=== PATIENT | male | born 1965 | race Caucasian/White ===

== ENCOUNTER 2018-09-27 22:31 | Emergency (ER) | payer BC, OTHER ==
[~2018-09-27] VITALS: Ht 160 cm; Wt 61.7 kg
[~2018-09-27 22:31] MED LIST: CLON1TAB PO; DEXL60CA3 PO; LORA-259 PO; SODI650T PO
[2018-09-27] MEDS ORDERED: IV NORMAL SALINE 1000 ML BAG IV ONE (23:00)
[2018-09-27] MEDS ORDERED: MORPHINE SULFATE 4 MG/1 ML DISP.SYRIN IV ONE ×2 (23:00→23:45)
[2018-09-27] MEDS ORDERED: ONDANSETRON 4 MG/2 ML VIAL IV ONE ×2 (23:00→23:45)
[2018-09-27] MEDS ORDERED: MORPHINE SULFATE 4 MG/1 ML DISP.SYRIN ONE (23:16)
[2018-09-27] MEDS ORDERED: ONDANSETRON 4 MG/2 ML VIAL ONE (23:17)
[2018-09-27 23:22] LABS: BASOPHILS % (AUTO) 0.2 % (0.0-2.0); EOSINOPHILS # (AUTO) 0.1 K/uL (0.0-0.7); EOSINOPHILS % (AUTO) 1.1 % (0.0-7.0); HEMOGLOBIN 15.5 g/dL (12.5-16.3); LYMPHOCYTES # (AUTO) 0.7 K/uL (20.0-40.0); LYMPHOCYTES % (AUTO) 6.6 % (20.5-51.5); MEAN CORPUSCULAR HEMOGLOBIN 31.9 uug (23.8-33.4); MEAN CORPUSCULAR HGB CONC 34 g/dL (32.5-36.3); MEAN CORPUSCULAR VOLUME 94.5 fL (73.0-96.2); MONOCYTES # (AUTO) 0.8 K/uL (2.0-10.0); MONOCYTES % (AUTO) 7.5 % (0.0-11.0); NEUTROPHILS # (AUTO) 8.5 K/uL (1.8-8.9); NEUTROPHILS % (AUTO) 84.6 % (38.5-71.5); PLATELET COUNT (AUTO) 200 K/uL (152-348); RED BLOOD CELL COUNT(AUTO) 4.87 MIL/uL (4.06-5.63); WHITE BLOOD COUNT (AUTO) 10.1 K/uL (3.6-10.2)
[2018-09-27 23:30] LABS: CREATININE 1.7 mg/dL (0.6-1.3); POTASSIUM 3.3 mmol/L (3.5-5.1)
[2018-09-27 23:36] LABS: BILIRUBIN,DIRECT 0.2 mg/dL (0.0-0.2); BILIRUBIN,TOTAL 0.8 mg/dL (0.2-1.0); TOTAL PROTEIN, SERUM 8.3 g/dL (6.4-8.2)
--- NOTE | 2018-09-27 23:38 | NUR ---
blood bank technologist. at bedside for CXR
[2018-09-28] MEDS ORDERED: ONDANSETRON 4 MG/2 ML VIAL ONE (00:02)
[2018-09-28] MEDS ORDERED: MORPHINE SULFATE 4 MG/1 ML DISP.SYRIN ONE (00:02)
[2018-09-28 00:04] LABS: *BILIRUBIN,URIN NEGATIVE (NEGATIVE); *BLOOD, URINE NEGATIVE (NEGATIVE); *CLARITY,URINE CLEAR (CLEAR); *COLOR,URINE YELLOW (YELLOW); *KETONES,URINE NEGATIVE (NEGATIVE); *UROBILINOGEN,URINE 0.2 E.U./dl (NORMAL); LEUKOCYTE ESTERASE ,URINE NEGATIVE (NEGATIVE); NITRITE, URINE NEGATIVE (NEGATIVE); UGLUCOSE NEGATIVE (NEGATIVE)
--- NOTE | 2018-09-28 00:05 | NUR ---
Luís alicea in [facility] - 09/28/18 at 0005 by DASIAPP Pt. back from CT
[2018-09-28 00:27] LABS: RBC,URINE 0-3 /HPF (0-3)
[2018-09-28 00:28] LABS: BACTERIA,URINE NONE SEEN /HPF (NONE SEEN); SQUAMOUS EPITHELIAL CELL,UR FEW /HPF (NONE SEEN); URINE AMORPHOUS URATE FEW /HPF
[2018-09-28 00:29] LABS: MUCUS,URINE MODERATE /LPF (0-FEW)
--- NOTE | 2018-09-28 00:45 | NUR ---
2nd litter NS begun, bed in low position, NAD
--- NOTE | 2018-09-28 01:45 | NUR ---
Patient discharged to home in stable conditon. Written and verbal after care instructions given. Patient verbalizes understanding of instructions. Pt. d/c w/ prescription per MD order, d/c papers signed, all belongings w/ pt., ID band removed, ambulated off unit w/ steady gait, NAD
== END 2018-09-28 01:47 | disposition home or self-care (01) ==
LOC: ER 22:31
DX: R10.84 Generalized abdominal pain (principal); R11.2 Nausea with vomiting, unspecified; J45.909 Unspecified asthma, uncomplicated; E03.9 Hypothyroidism, unspecified; Z90.49 Acquired absence of other specified parts of digestive tract; Z88.8 Allergy status to other drugs, medicaments and biological substances; Z79.899 Other long term (current) drug therapy
CPT/HCPCS: 36415; 71045; 80048; 80076; 81000; 81001; 83690; 84484; 85025; 85730; 87086; 93005; 96361; 96374; 96375; 96376; 99284; J2270 ×2; J2405 ×2; 70030-TC; A4663; J7030

== ENCOUNTER 2018-10-31 05:15 | Inpatient (IN) | payer BC ==
[~2018-10-31] VITALS: Ht 160 cm; Wt 61.2 kg
--- NOTE | 2018-10-31 05:30 | NUR ---
patient arrive at the ER with CC of pain on left side of mid to lower back that radiates to left abdominal are that started at 10pm last night. Pain described as sharp pain. Patient with ileostomy. Also reported Nausea and reported taking Zofran at home. Denies any diarrhea. Patient AAOX4. In no acute distress. No cardiovascular concern. No concern.
--- NOTE | 2018-10-31 05:32 | NUR ---
KEV Tillman at bedside for MSE.
--- NOTE | 2018-10-31 05:40 | NUR ---
Patient witih PICC line double lumen on right upper arm. Receieved order from ER clifton Cardoso to acces existing PICC line.
[2018-10-31] MEDS ORDERED: HYDROMORPHONE 1 MG/1 ML DISP.SYRIN IV ONE ×5 (05:45→15:00)
[2018-10-31] MEDS ORDERED: METOCLOPRAMIDE HCL 10 MG/2 ML VIAL IV ONE (05:45)
[2018-10-31] MEDS ORDERED: IV NORMAL SALINE 500 ML IV ONE (05:45)
[2018-10-31 05:46] LABS: BASOPHILS % (AUTO) 0.3 % (0.0-2.0); EOSINOPHILS # (AUTO) 0.4 K/uL (0.0-0.7); EOSINOPHILS % (AUTO) 3.4 % (0.0-7.0); HEMATOCRIT 40.5 % (36.7-47.1); HEMOGLOBIN 13.5 g/dL (12.5-16.3); LYMPHOCYTES # (AUTO) 0.9 K/uL (20.0-40.0); LYMPHOCYTES % (AUTO) 7.7 % (20.5-51.5); MEAN CORPUSCULAR HEMOGLOBIN 30.9 uug (23.8-33.4); MEAN CORPUSCULAR HGB CONC 33 g/dL (32.5-36.3); MEAN CORPUSCULAR VOLUME 92.5 fL (73.0-96.2); MONOCYTES # (AUTO) 0.7 K/uL (2.0-10.0); MONOCYTES % (AUTO) 6.1 % (0.0-11.0); NEUTROPHILS # (AUTO) 9.4 K/uL (1.8-8.9); NEUTROPHILS % (AUTO) 82.5 % (38.5-71.5); PLATELET COUNT (AUTO) 224 K/uL (152-348); RED BLOOD CELL COUNT(AUTO) 4.38 MIL/uL (4.06-5.63); WHITE BLOOD COUNT (AUTO) 11.3 K/uL (3.6-10.2)
[2018-10-31 05:57] LABS: POTASSIUM 4.3 mmol/L (3.5-5.1)
[2018-10-31] MEDS ORDERED: METOCLOPRAMIDE HCL 10 MG/2 ML VIAL ONE (05:57)
[2018-10-31] MEDS ORDERED: HYDROMORPHONE 1 MG/1 ML DISP.SYRIN ONE ×3 (05:57→11:18)
[2018-10-31 06:08] LABS: BILIRUBIN,DIRECT 0.1 mg/dL (0.0-0.2); BILIRUBIN,TOTAL 0.3 mg/dL (0.2-1.0); TOTAL PROTEIN, SERUM 6.8 g/dL (6.4-8.2)
--- NOTE | 2018-10-31 06:25 | NUR ---
Back to ER from CTA.
[2018-10-31 06:27] LABS: *BILIRUBIN,URIN NEGATIVE (NEGATIVE); *CLARITY,URINE CLEAR (CLEAR); *COLOR,URINE YELLOW (YELLOW); *KETONES,URINE NEGATIVE (NEGATIVE); *UROBILINOGEN,URINE 0.2 E.U./dl (NORMAL); LEUKOCYTE ESTERASE ,URINE NEGATIVE (NEGATIVE); NITRITE, URINE NEGATIVE (NEGATIVE); PH,URINE 5.5 (5.0-8.0); UGLUCOSE NEGATIVE (NEGATIVE)
[2018-10-31 06:36] LABS: *BLOOD, URINE TRACE (NEGATIVE)
[2018-10-31 06:38] LABS: BACTERIA,URINE NONE SEEN /HPF (NONE SEEN); SQUAMOUS EPITHELIAL CELL,UR NONE SEEN /HPF (NONE SEEN); WBC,URINE 0-3 /HPF (0-3)
--- NOTE | 2018-10-31 07:11 | NUR ---
Shift report given to Taylor Beckford
--- NOTE | 2018-10-31 07:28 | NUR ---
RECEIVED SHIFT REPORT FROM MARLIN Kong RN. PT RESTING IN BED.
--- NOTE | 2018-10-31 08:56 | NUR ---
KEV DICKERSON SPOKE LEFT A MESSAGE FOR DR. DUMAS, ALUMINUM MOLDER, AT [facility] PER PT'S REQUEST. AWAITING CALLBACK.
[2018-10-31] MEDS ORDERED: HYDROMORPHONE 2 MG/1 ML DISP.SYRIN ONE (09:02)
--- NOTE | 2018-10-31 09:05 | NUR ---
KEV DICKERSON SPEAKING W/ DR. DUMAS ON THE PHONE.
--- NOTE | 2018-10-31 10:57 | NUR ---
CALLED AND LEFT A MESSAGE FOR DR. THOMPSON, UROLOGIST. AWAITING CALLBACK.
--- NOTE | 2018-10-31 11:07 | NUR ---
KEV DICKERSON SPEAKING W/ DR. THOMPSON, UROLOGIST, ON THE PHONE.
[2018-10-31] MEDS ORDERED: ONDANSETRON 4 MG/2 ML VIAL IV ONE (11:15)
[2018-10-31] MEDS ORDERED: ONDANSETRON 4 MG/2 ML VIAL ONE (11:18)
--- NOTE | 2018-10-31 12:09 | NUR ---
ADMITTING REPORT GIVEN TO JAVIER BAILEY.
--- NOTE | 2018-10-31 12:14 | NUR ---
Pt. admitted to [facility], under care of Dr. ASH Belongs List completed
[2018-10-31] MEDS ORDERED: HYDROMORPHONE 1 MG/1 ML DISP.SYRIN IV PRN (13:45)
[2018-10-31] MEDS ORDERED: IV D5 1/2 NS 1000 ML 1,000 ML IV PRN (13:46)
[2018-10-31] MEDS ORDERED: ACETAMINOPHEN 325 MG TABLET PO PRN (14:00)
[2018-10-31] MEDS ORDERED: MAGNESIUM HYDROXIDE 30 ML LIQUID UDC PO PRN (14:00)
[2018-10-31] MEDS ORDERED: Z GUARD REMEDY PASTE 57 GM TUBE TOP PRN (14:00)
[2018-10-31] MEDS ORDERED: ONDANSETRON 4 MG/2 ML VIAL IV PRN (14:00)
[2018-10-31] MEDS ORDERED: ZOLPIDEM 5 MG TABLET PO PRN (14:00)
[2018-10-31] MEDS ORDERED: HYDROCODONE/APAP 5-325MG TABLET PO PRN (14:00)
[2018-10-31] MEDS: IV NS 1000 ML 1,000 ML IV PRN (15:30)
[2018-10-31] MEDS: HYDROMORPHONE 2 MG/1 ML DISP.SYRIN IV PRN (17:54)
--- NOTE | 2018-10-31 19:40 | NUR ---
Received patient awake in bed, alert and oriented x 4, ambulatory. Complaining of pain at the moment, noted patient was just given Dilaudid IV will contact MD for possible new pain medication order. With PICC line at right upper arm, double lumen with intact dressing, to ongoing IVF, infusing well. Bed in low position, locked, side rails up for safety, call light within reach. Noise and light subdued.
[2018-10-31 20:00] VITALS: BP 123/69
--- NOTE | 2018-10-31 20:00 | NUR ---
Per Dr. Wang, patient can be given Toradol 15mg IV q6h for pain.
[2018-10-31] MEDS ORDERED: KETOROLAC TROMETHAMINE 15 MG INJ IVP PRN (20:30)
--- NOTE | 2018-10-31 20:30 | NUR ---
Patient seen and examined by Dr. Haney, urologist, who ordered to give patient Toradol 30mg x 1 and ordered to discontinue Toradol 15mg IV q6h to which Dr. Wang agreed. Per Dr. Haney, patient declined to have the JJ stent placement supposedly for tomorrow. Dr. Haney and Dr. Wang are both aware that the patient requested to be transferred to [facility] and that we are awaiting for bed availability.
[2018-10-31] MEDS ORDERED: KETOROLAC TROMETHAMINE 15 MG INJ IVP SCH (20:45)
[2018-10-31] MEDS ORDERED: CLONAZEPAM 1 MG TABLET PO PRN (21:30)
[2018-11-01] MEDS: IV NS 1000 ML 1,000 ML IV PRN (01:20)
[2018-11-01] MEDS: HYDROMORPHONE 2 MG/1 ML DISP.SYRIN IV PRN ×2 (03:00→12:29)
[2018-11-01 03:01] VITALS: BP 105/65
[2018-11-01] MEDS ORDERED: KETOROLAC TROMETHAMINE 15 MG INJ IVP ONE (04:00)
--- NOTE | 2018-11-01 04:00 | NUR ---
Patient still in pain even after dilaudid IV dose. Contacted concrete grinder operator provider, Cesar Pak DNP who ordered to give Toradol 15mg IV x 1 - given to patient. Will continue to monitor.
--- NOTE | 2018-11-01 05:30 | NUR ---
Patient slept intermittently throughout the night. No distress noted. Attended all needs. Ensured safety and comfort. Still awaiting for bed at [facility] for possible transfer.
[2018-11-01 06:33] LABS: CREATININE 2.7 mg/dL (0.6-1.3); PHOSPHOROUS 2.8 mg/dL (2.5-4.9); POTASSIUM 3.7 mmol/L (3.5-5.1)
[2018-11-01 06:37] LABS: BASOPHILS % (AUTO) 0.3 % (0.0-2.0); EOSINOPHILS # (AUTO) 0.2 K/uL (0.0-0.7); EOSINOPHILS % (AUTO) 2.2 % (0.0-7.0); HEMATOCRIT 34.9 % (36.7-47.1); HEMOGLOBIN 11.8 g/dL (12.5-16.3); LYMPHOCYTES % (AUTO) 10.3 % (20.5-51.5); MEAN CORPUSCULAR HEMOGLOBIN 31.9 uug (23.8-33.4); MEAN CORPUSCULAR HGB CONC 34 g/dL (32.5-36.3); MEAN CORPUSCULAR VOLUME 94.5 fL (73.0-96.2); MONOCYTES # (AUTO) 0.7 K/uL (2.0-10.0); MONOCYTES % (AUTO) 6.9 % (0.0-11.0); NEUTROPHILS # (AUTO) 7.9 K/uL (1.8-8.9); NEUTROPHILS % (AUTO) 80.3 % (38.5-71.5); PLATELET COUNT (AUTO) 183 K/uL (152-348); WHITE BLOOD COUNT (AUTO) 9.8 K/uL (3.6-10.2)
[2018-11-01 06:40] LABS: MAGNESIUM 1.1 mg/dL (1.8-2.4)
--- NOTE | 2018-11-01 06:45 | NUR ---
Critical lab value: Magnesium is 1.1, reported to accordion tuner provider, Cesar Pak DNP. Still awaiting for possible orders. Will endorse accordingly.
[2018-11-01] MEDS ORDERED: MAGNESIUM SULFATE/D5W 100 ML IV SCH (07:00)
[2018-11-01] MEDS ORDERED: PANTOPRAZOLE SODIUM 40 MG TABLET.DR PO SCH (07:33)
[2018-11-01] MEDS ORDERED: CLONAZEPAM 1 MG TABLET PO PRN (07:45)
--- NOTE | 2018-11-01 07:45 | NUR ---
Received patient awake in bed, alert and oriented x 4, ambulatory. No complain of pain at the moment, With PICC line at right upper arm, double lumen with intact dressing, to ongoing IVF, infusing well. Bed in low position, locked, side rails up for safety, call light within reach.
[2018-11-01] MEDS ORDERED: SODIUM BICARBONATE 650 MG TABLET PO SCH (09:00)
[2018-11-01] MEDS ORDERED: Medication Not On Formulary EA (Dexlansoprazole (Dexilant) 1 CAP) PO SCH (09:00)
[2018-11-01] MEDS ORDERED: LORAZEPAM 1 MG TABLET PO SCH (09:00)
[2018-11-01] MEDS ORDERED: IV 1/2NS 1000 ML 1,000 ML IV PRN (10:30)
--- NOTE | 2018-11-01 13:47 | NUR ---
discharge orders received. Pt discharged home self care. D/C instructions given to Pt. Pt to follow up to [facility]. Pt alert and oriented x4. No acute distress noted. JAQUELINE PICC line dressing changed intact and patent. Pt accompanied by significant other. D/C via wheelchair to private transportation.
== END 2018-11-01 13:30 | disposition home or self-care (01) | DRG 694 ==
LOC: ER 05:17 → MEDSURG3 12:49
PROVIDERS: ADMIT Student in an Organized Health Care Education/Training Program; ATTEND Student in an Organized Health Care Education/Training Program
DX: N13.2 Hydronephrosis with renal and ureteral calculous obstruction (principal); E44.1 Mild protein-calorie malnutrition; E87.0 Hyperosmolality and hypernatremia; E87.2 Acidosis; K50.90 Crohn's disease, unspecified, without complications; E05.00 Thyrotoxicosis with diffuse goiter without thyrotoxic crisis or storm; N17.0 Acute kidney failure with tubular necrosis; Z68.23 Body mass index [BMI] 23.0-23.9, adult; E83.42 Hypomagnesemia; E03.9 Hypothyroidism, unspecified; Z90.49 Acquired absence of other specified parts of digestive tract; Z93.2 Ileostomy status; N18.3 Chronic kidney disease, stage 3 (moderate); Z87.442 Personal history of urinary calculi; D72.828 Other elevated white blood cell count; R80.9 Proteinuria, unspecified
CPT/HCPCS: 36415; 71045; 83690; 83735; 84100; 85025; 87086; A4663; A9150; G0378; J1170; J1885; J2405; J2765; J3475; J3490; J7030

== ENCOUNTER 2019-04-18 01:59 | Emergency (ER) | payer BC ==
[~2019-04-18] VITALS: Ht 157.5 cm; Wt 64.4 kg
[2019-04-18] MEDS ORDERED: IV NORMAL SALINE 1000 ML BAG IV ONE (02:30)
[2019-04-18] MEDS ORDERED: ONDANSETRON 4 MG/2 ML VIAL ONE (02:52)
[2019-04-18] MEDS ORDERED: HYDROMORPHONE 1 MG/1 ML DISP.SYRIN ONE (02:52)
[2019-04-18 02:56] LABS: BASOPHILS % (AUTO) 0.3 % (0.0-2.0); EOSINOPHILS # (AUTO) 0.3 K/uL (0.0-0.7); EOSINOPHILS % (AUTO) 2.4 % (0.0-7.0); HEMATOCRIT 43.1 % (36.7-47.1); HEMOGLOBIN 14.5 g/dL (12.5-16.3); LYMPHOCYTES # (AUTO) 0.6 K/uL (20.0-40.0); LYMPHOCYTES % (AUTO) 4.9 % (20.5-51.5); MEAN CORPUSCULAR HEMOGLOBIN 30.8 uug (23.8-33.4); MEAN CORPUSCULAR HGB CONC 34 g/dL (32.5-36.3); MEAN CORPUSCULAR VOLUME 91.5 fL (73.0-96.2); MONOCYTES # (AUTO) 0.8 K/uL (2.0-10.0); MONOCYTES % (AUTO) 6.8 % (0.0-11.0); NEUTROPHILS # (AUTO) 9.7 K/uL (1.8-8.9); NEUTROPHILS % (AUTO) 85.6 % (38.5-71.5); PLATELET COUNT (AUTO) 218 K/uL (152-348); RED BLOOD CELL COUNT(AUTO) 4.72 MIL/uL (4.06-5.63); WHITE BLOOD COUNT (AUTO) 11.3 K/uL (3.6-10.2)
[2019-04-18] MEDS ORDERED: ONDANSETRON 4 MG/2 ML VIAL IV ONE (03:00)
[2019-04-18] MEDS ORDERED: HYDROMORPHONE 1 MG/1 ML DISP.SYRIN IV ONE (03:00)
--- NOTE | 2019-04-18 03:05 | NUR ---
PT C/O ABDOMINAL PAIN AT 09/05 +COLOSTOMY, BAG INTACT, NO ERYTHEMA TO THE SITE PT ABLE TO TOLERATE PAIN MEDS PER IV MANAGER OF INVESTIGATIONS AT BEDSIDE FOR TRANSPORT (CT)
[2019-04-18 03:16] LABS: CREATININE 1.8 mg/dL (0.6-1.3); POTASSIUM 4.2 mmol/L (3.5-5.1)
[2019-04-18 03:23] LABS: BILIRUBIN,DIRECT 0.1 mg/dL (0.0-0.2); BILIRUBIN,TOTAL 0.5 mg/dL (0.2-1.0); TOTAL PROTEIN, SERUM 8.3 g/dL (6.4-8.2)
--- NOTE | 2019-04-18 04:14 | NUR ---
Patient discharged to home in stable conditon. Written and verbal after care instructions given. Patient verbalizes understanding of instructions. AMBULATORY W/ STABLE GAIT ALL BELONGINGS W/ PT IV DC, DRESSED
[2019-04-18 04:18] VITALS: BP 122/59
== END 2019-04-18 04:18 | disposition home or self-care (01) ==
LOC: ER 02:04
DX: B34.9 Viral infection, unspecified (principal); R50.9 Fever, unspecified; N18.3 Chronic kidney disease, stage 3 (moderate); E03.9 Hypothyroidism, unspecified; Z90.49 Acquired absence of other specified parts of digestive tract; Z79.899 Other long term (current) drug therapy; Z88.8 Allergy status to other drugs, medicaments and biological substances
CPT/HCPCS: 36415; 71045; 74176; 80048; 80076; 83605; 83690; 84484; 85025; 85730; 86403; 87040; 87070; 87400; 93005; 96374; 96375; 99284; J1170; J2405; 70030-TC; A4663; J7030